=== PATIENT | female | born 1970 | race Caucasian/White ===

== ENCOUNTER 2016-11-29 00:03 | Emergency (ER) | payer OTHER ==
--- NOTE | ~2016-11-29 | CT4 ---
[facility] A Service of [facility] [place] RADIOLOGY TEXT RESULTS PATIENT: JANINE ALEJANDRA LOCATION: SED : 74 UNIT #: [id number] AGE: [address]: Dong Blanco MD SEX: F ORDER DR: [id number] [address] [address] [id number] E MR#: [id number] Acc #: [id number] NAME: JANINE ALEJANDRA. : 1970 SEX: F STUDY DATE/TIME: 11/29/2016 0:50 UNIT: SED ROOM: STUDY DESCRIPTION: CT Abd and Pelv Wo Cont Attending Physician: Dong Blanco M.D. Ordering Physician: Dong Blanco M.D. Primary Care Physician: Zheng Jarvis M.D. MEDICAL IMAGING REPORT This report is preliminary unless electronic signature is present. EXAM CT scan of the abdomen and pelvis without contrast INDICATION Left and right flank pain for 1 hour. TECHNIQUE Axial 3 mm images were obtained through the abdomen and pelvis without IV or oral contrast. Sagittal and coronal reconstructions were generated. This CT exam was performed with one or more of the following radiation dose reduction techniques: automatic exposure control, adjustment of mA and/or kV according to patient size, and iterative reconstruction. FINDINGS The lung bases are clear. The liver, gallbladder, spleen, pancreas, and adrenal glands and kidneys are normal. There is no stone visible. The aorta is normal in size and there is no adenopathy. The bowel appears normal. The appendix is normal. The uterus, adnexal regions and bladder are normal. There are postoperative changes in the lumbar spine with pedicle screws. IMPRESSION 1. Postoperative change lumbar spine. 2. Normal appendix. 3. No urinary stones are identified. 4. Otherwise normal. Dictated by... [facility] A Service [facility] RADIOLOGY TEXT RESULTS PATIENT: JANINE ALEJANDRA LOCATION: SED : 74 UNIT #: [id number] AGE: [address]: Dong Blanco MD SEX: F ORDER DR: Fabien Rosa M.D. THIS IS AN ELECTRONICALLY VERIFIED REPORT Fabien Rosa M.D. at 11/29/2016 5:56 AM DAVIN/haydee TD: 11/29/2016 03:57 JOB #: [id number] MEDICAL IMAGING REPORT Page 1 of 1
[~2016-11-29 00:03] MED LIST: BENZONATATE PO; LEVAQUIN PO; PREVACID; ROBITUSSIN A-C-S1 ML PO; VIBRAMYCIN100 M1 PO; VICODIN PO
[2016-11-29] MEDS ORDERED: METOPROLOL TAR25 MG (00:10)
[2016-11-29] MEDS ORDERED: PRINIVIL20 M1 (00:10)
[2016-11-29] MEDS ORDERED: HCTZ (00:10)
[2016-11-29] MEDS ORDERED: GABAPENTIN300 MG PO (00:10)
[2016-11-29] MEDS ORDERED: HYDROCODON-ACE1 EAC5 (00:11)
[2016-11-29 00:49] LABS: URINE SOURCE CLEAN CATCH
[2016-11-29 00:51] LABS: BASOPHIL# 0.3 X10e3 (0-0.3); BASOPHIL% 2.4 % (0-2.5); EOSINOPHIL# 0.1 X10e3 (0-0.7); EOSINOPHIL% 0.9 % (0.0-7.0); HEMATOCRIT 41.8 % (35.0-45.0); LYMPHOCYTE% 21.8 % (17.0-45.0); MEAN CELL VOLUME 86.6 FL (83-96); MEAN CORPUSCULAR HEMOGLOBIN 35.3 PG (28-34); MEAN CORPUSCULAR HGB CONC 40.8 g/dL (30-36); MEAN PLATELET VOLUME 8.3 FL (6.5-11.5); MONOCYTE# 0.7 X10e3 (0-1.0); MONOCYTE% 5.4 % (3.0-12.0); NEUTROPHIL# 9.4 X10e3 (1.5-7.1); NEUTROPHIL% 69.5 % (40-75); PLATELET COUNT 290 X10e3 (140-420); RED BLOOD COUNT 4.82 X10e (3.90-5.30); RED CELL DISTRIBUTION WIDTH 13.5 % (11.0-15.5); URINE APPEARANCE CLEAR; URINE BILIRUBIN NEG (NEG); URINE BLOOD NEG (NEG); URINE COLOR YELLOW; URINE GLUCOSE NEG (NORM); URINE KETONE TRACE (NEG); URINE LEUKOCYTE ESTERASE NEG (NEG); URINE NITRATE NEG (NEG); URINE PROTEIN TRACE (NEG); URINE UROBILINOGEN 0.2 MG/DL (NORM); WHITE BLOOD COUNT 13.5 X10e3 (4.0-10.5)
[2016-11-29 00:53] LABS: DIFF IND NO; MICRO INDICATED? NO
[2016-11-29 02:34] LABS: BUN/CREATININE RATIO 22.5; CALCIUM SERUM 9.9 mg/dL (8.4-10.2); CREATININE SERUM 0.8 mg/dL (0.6-1.4); GLOM FILT RATE Estimated 89.7 mL/min (>60); POTASSIUM 3.3 mmol/L (3.5-5.1); PROTEIN TOTAL SERUM 7.2 g/dL (6.0-8.3)
[2016-11-29 02:35] LABS: BILIRUBIN,TOTAL 0.5 mg/dL (0.2-2.0)
== END 2016-11-29 03:39 | disposition home or self-care (01) ==
LOC: SED 00:03
DX: R10.84 Generalized abdominal pain (principal); I10 Essential (primary) hypertension; F17.210 Nicotine dependence, cigarettes, uncomplicated; Z88.1 Allergy status to other antibiotic agents; Z88.2 Allergy status to sulfonamides
CPT/HCPCS: 36415; 74176; 80053; 81003; 85025; 96361; 96374; 96375; 99284; J2270; J2405